=== PATIENT | female | born 1995 | race Caucasian/White ===

== ENCOUNTER 2016-11-22 08:00 | Emergency (ER) | payer BC, OTHER ==
[~2016-11-22] VITALS: Ht 167.6 cm; Wt 59.6 kg
[2016-11-22 08:03] VITALS: BP 124/81
[2016-11-22] MEDS ORDERED: LIDOCAINE 1%, 20ML ONE (08:46)
[2016-11-22] MEDS ORDERED: LIDOCAINE 1%, 20ML SQ ONE (09:00)
== END 2016-11-22 09:53 | disposition home or self-care (01) ==
LOC: ED 08:53
DX: S61.211A Laceration without foreign body of left index finger without damage to nail, initial encounter (principal); S61.213A Laceration without foreign body of left middle finger without damage to nail, initial encounter; X58.XXXA Exposure to other specified factors, initial encounter; Y93.89 Activity, other specified; Y92.098 Other place in other non-institutional residence as the place of occurrence of the external cause; Y99.8 Other external cause status
CPT/HCPCS: 12001

== ENCOUNTER 2018-04-26 10:29 | Inpatient (IN) | payer OTHER ==
[~2018-04-26] VITALS: Ht 167.6 cm; Wt 73.0 kg
[2018-04-26 10:48] VITALS: BP 140/90
[2018-04-26] MEDS ORDERED: OXYTOCIN 30U/ 0.9% NaCL 500ML 500 ML IV ONE (11:19)
[2018-04-26] MEDS: LACTATED RINGERS 1,000 ML IV SCH (11:30)
[2018-04-26] MEDS ORDERED: PENICILLIN GK 5,000,000 UNITS in DEXTROSE 5% 100 ML IVPB ONE (11:30)
[2018-04-26] MEDS ORDERED: SODIUM CHLORIDE FLUSH 10ML SYR IVF PRN (11:30)
[2018-04-26] MEDS ORDERED: NEWBORN KIT ONE ×2 (11:41→11:54)
[2018-04-26 11:52] LABS: MEAN CORPUSCULAR VOLUME 93.2 fL (80-100); RED BLOOD COUNT 4.36 x10^6/uL (3.82-5.3)
[2018-04-26 11:53] LABS: BASOPHILS # (AUTO) 0.01 x10^3/uL (0-0.1); BASOPHILS % (AUTO) 0 % (0-1); EOSINOPHILS # (AUTO) 0.01 x10^3/uL (0-0.4); EOSINOPHILS % (AUTO) 0 % (1-7); LYMPHOCYTES # (AUTO) 1.09 x10^3/uL (1-3.4); LYMPHOCYTES % (AUTO) 7 % (22-44); MD NO; MEAN CORPUSCULAR HEMOGLOBIN 31.4 pg (27.0-34.8); MEAN CORPUSCULAR HGB CONC 33.7 g/dL (32.4-35.8); MEAN PLATELET VOLUME 9.8 fL (7.4-10.4); MONOCYTES # (AUTO) 0.24 x10^3/uL (0.2-0.8); MONOCYTES % (AUTO) 2 % (2-9); NEUTROPHILS # (AUTO) 14.02 x10^3/uL (1.8-6.8); NEUTROPHILS % (AUTO) 91 % (42-75); PLATELET COUNT 181 x10^3/uL (130-400); RED CELL DISTRIBUTION WIDTH 13.7 % (9.6-15.2)
[2018-04-26] MEDS ORDERED: OXYTOCIN 30U/ 0.9% NaCL 500ML 500 ML ONE (11:53)
[2018-04-26] MEDS ORDERED: MISOPROSTOL 200 MCG TABLET ONE (11:53)
[2018-04-26] MEDS: PENICILLIN GK 2,500,000 UNITS in DEXTROSE 5% 100 ML IVPB SCH ×2 (15:18→19:28)
[2018-04-26 16:09] LABS: ALANINE AMINOTRANSFERASE 17 U/L (12-78); ALBUMIN 3.1 g/dL (3.4-5.0); ANION GAP 8 mmol/L (5-15); CALCIUM 8.8 mg/dL (8.5-10.1); CHLORIDE 104 mmol/L (98-107)
[2018-04-26 16:12] LABS: ALKALINE PHOSPHATASE 246 U/L (45-117); BILIRUBIN,TOTAL 0.4 mg/dL (0.2-1.0); TOTAL PROTEIN 7.4 g/dL (6.4-8.2)
[2018-04-27] MEDS ORDERED: CALCIUM CARBONATE 500 MG TAB.CHEW ONE (00:03)
[2018-04-27] MEDS: PENICILLIN GK 2,500,000 UNITS in DEXTROSE 5% 100 ML IVPB SCH ×3 (00:07→07:14)
[2018-04-27] MEDS ORDERED: CALCIUM CARBONATE 500 MG TAB.CHEW PO PRN (00:30)
[2018-04-27] MEDS: LACTATED RINGERS 1,000 ML IV SCH (07:14)
[2018-04-27] MEDS: OXYTOCIN 30U/ 0.9% NaCL 500ML 500 ML IV SCH ×2 (10:25→20:25)
[2018-04-27] MEDS ORDERED: BISACODYL 10 MG SUPP PR PRN (10:30)
[2018-04-27] MEDS ORDERED: MISOPROSTOL 200 MCG TABLET PR PRN (10:30)
[2018-04-27] MEDS ORDERED: CARBOPROST TROMETHAMINE 250 MCG/ML, 1ML IM PRN (10:30)
[2018-04-27] MEDS ORDERED: OXYcodone/APAP 5/325MG TABLET PO PRN (10:30)
[2018-04-27] MEDS ORDERED: METHYLERGONOVINE 0.2 MG/ML IM PRN (10:30)
[2018-04-27] MEDS ORDERED: GLYCERIN ADULT SUPP PR PRN (10:30)
[2018-04-27] MEDS ORDERED: ACETAMINOPHEN 325 MG TABLET PO PRN (10:30)
[2018-04-27] MEDS ORDERED: METOCLOPRAMIDE 5 MG/ML, 2ML IV PRN (10:30)
[2018-04-27] MEDS ORDERED: ONDANSETRON 2MG/ML, 2ML IV PRN (10:30)
[2018-04-27] MEDS ORDERED: IBUPROFEN 600 MG TABLET ONE (11:20)
[2018-04-27] MEDS: IBUPROFEN 600 MG TABLET PO PRN ×3 (11:22→23:15)
[2018-04-27 11:50] VITALS: BP 118/68
[2018-04-27 16:00] VITALS: BP 115/76
[2018-04-27 18:37] LABS: BASOPHILS # (AUTO) 0.06 x10^3/uL (0-0.1); BASOPHILS % (AUTO) 1 % (0-1); EOSINOPHILS # (AUTO) 0.02 x10^3/uL (0-0.4); EOSINOPHILS % (AUTO) 0 % (1-7); LYMPHOCYTES # (AUTO) 1.71 x10^3/uL (1-3.4); LYMPHOCYTES % (AUTO) 14 % (22-44); MD NO; MEAN CORPUSCULAR HEMOGLOBIN 31.3 pg (27.0-34.8); MEAN CORPUSCULAR HGB CONC 33.5 g/dL (32.4-35.8); MEAN CORPUSCULAR VOLUME 93.3 fL (80-100); MEAN PLATELET VOLUME 9.6 fL (7.4-10.4); MONOCYTES # (AUTO) 0.76 x10^3/uL (0.2-0.8); MONOCYTES % (AUTO) 6 % (2-9); NEUTROPHILS # (AUTO) 9.76 x10^3/uL (1.8-6.8); NEUTROPHILS % (AUTO) 79 % (42-75); PLATELET COUNT 173 x10^3/uL (130-400); RED CELL DISTRIBUTION WIDTH 13.2 % (9.6-15.2)
[2018-04-27 20:05] VITALS: BP 117/74
[2018-04-27] MEDS: DOCUSATE 100 MG CAPSULE PO PRN (23:15)
[2018-04-28 00:40] VITALS: BP 114/72
[2018-04-28 04:40] VITALS: BP 109/61
[2018-04-28] MEDS: IBUPROFEN 600 MG TABLET PO PRN ×2 (06:03→12:59)
[2018-04-28] MEDS: OXYTOCIN 30U/ 0.9% NaCL 500ML 500 ML IV SCH ×2 (06:25→16:25)
[2018-04-28] MEDS: DOCUSATE 100 MG CAPSULE PO PRN (07:27)
[2018-04-28 08:26] VITALS: BP 114/74
[2018-04-28] MEDS ORDERED: PRENATAL VIT/IRON/FA 1 EACH TABLET PO SCH (09:00)
== END 2018-04-28 18:16 | disposition home or self-care (01) | DRG 806 ==
LOC: LDOP 10:29 → LDIP 11:19 → 2NW 04-27 11:51
PROVIDERS: ADMIT Student in an Organized Health Care Education/Training Program; ATTEND Student in an Organized Health Care Education/Training Program
PROC: 10E0XZZ Delivery of Products of Conception, External Approach (ICD-10-PCS; principal; 2018-04-27)
PROC: 0KQM0ZZ Repair Perineum Muscle, Open Approach (ICD-10-PCS; 2018-04-27)
PROC: 3E033VJ Introduction of Other Hormone into Peripheral Vein, Percutaneous Approach (ICD-10-PCS; 2018-04-27)
DX: O99.344 Other mental disorders complicating childbirth (principal); O99.354 Diseases of the nervous system complicating childbirth; Z37.0 Single live birth; O99.824 Streptococcus B carrier state complicating childbirth; Z3A.40 40 weeks gestation of pregnancy; G43.909 Migraine, unspecified, not intractable, without status migrainosus; F32.9 Major depressive disorder, single episode, unspecified; O70.1 Second degree perineal laceration during delivery
CPT/HCPCS: 36415; 80053; 85025; 86850; 86900; G0378; J2540; J2590; J7120